=== PATIENT | female | born 1975 | race Hispanic/Latino ===

== ENCOUNTER 2021-11-29 11:08 | Outpatient (CLI) | payer BC ==
--- NOTE | 2021-11-29 14:05 | XRay Report ---
RIGHT KNEE 3 VIEWS INDICATION / CLINICAL INFORMATION: M25.561 PAIN IN RIGHT KNEE COMPARISON: None available. FINDINGS: BONES and JOINT(S): No acute fracture or subluxation. No significant arthritis. Unremarkable appearin g postoperative changes are seen along the proximal tibial shaft. SOFT TISSUES: No significant abnormality. ADDITIONAL FINDINGS: None. IMPRESSION: 1. No acute findings. Signer Name: Louis Murphy MD Signed: 11/29/2021 2:00 PM Workstation Name: [id number]
== END 2021-11-29 11:09 | disposition home or self-care (01) ==
LOC: XRAY 11:08
PROVIDERS: ATTEND Orthopaedic Surgery
DX: M25.561 Pain in right knee (principal)